=== PATIENT | female | born 1975 | race Two or more races ===

== ENCOUNTER 2020-05-23 06:00 | Day surgery (SDC) | payer OTHER ==
[~2020-05-23 06:00] MED LIST: IBU800 MG PO; VITAMIN D310 MCG/1 M PO
== END 2020-05-23 17:00 | disposition home or self-care (01) ==
LOC: CIR.AMB 06:00
PROVIDERS: ATTEND Colon & Rectal Surgery
DX: C21.1 Malignant neoplasm of anal canal (principal); K64.8 Other hemorrhoids; Z20.828 Contact with and (suspected) exposure to other viral communicable diseases